=== PATIENT | female | born 1985 | race Caucasian/White ===

== ENCOUNTER 2017-04-07 14:46 | Emergency (ER) | payer SELFPAY ==
--- NOTE | 2017-04-07 14:52 | PDOC ---
Rapid Medical Evaluation Time Seen by Provider: 04/07/17 14:49 Medical Evaluation: Allergies Allergy/AdvReac Type Severity Reaction Status Date / Time No Known Allergies Allergy Verified 09/21/15 11:17 04/07/17 14:49 Pt presents to the ED with complaints of:itching and redness to left ear x 2 days, Pt states colored hair and noted s/s the next morning On brief exam: mild erythema and increased warmth to left helix and post auricular region Pt ordered for: none Pt to proceed to fasttrack Discharge Disposition - Diagnosis Itching - Referrals - Patient Instructions - Post Discharge Activity
[2017-04-07 14:56] VITALS: BP 110/61; PULSE 98; TEMP 99.2; BMI 22.1
[2017-04-07] MEDS ORDERED: diphenhydrAMINE HCL 50 MG CAPSULE PO ONE (16:51)
--- NOTE | 2017-04-07 16:51 | PDOC ---
History of Present Illness - General Chief Complaint: Redness To Affected Area Stated Complaint: ALLERGIC RXN Time Seen by Provider: 04/07/17 14:49 - History of Present Illness Initial Comments: 04/07/17 16:47 CHIEF COMPLAINT: allergic reaction HISTORY OF PRESENT ILLNESS: 31 yo F with no significant PMH presents to fast track with swelling, erythema, and warmth to b/l ears s/p using hair dye on . Patient denies any fever, chills, or swelling to mouth, tongue, lips , neck, throat. Patient states she did take Claritin without relief the last two days. PAST MEDICAL HISTORY: Denies past medical history FAMILY HISTORY: Denies SOCIAL HISTORY: Denies tobacco, alcohol, illicit drug use. SURGICAL HISTORY: Denies ALLERGIES: No known drug allergies REVIEW OF SYSTEMS General/Constitutional: Denies fever or chills. Denies weakness, weight change. HEENT: Denies change in vision. Denies ear pain or discharge. Denies sore throat. Cardiovascular: Denies chest pain or shortness of breath. Respiratory: Denies cough, wheezing, or hemoptysis. Gastrointestinal: Denies nausea, vomiting, diarrhea or constipation. Denies rectal bleeding. Genitourinary: Denies dysuria, frequency, or change in urination. Musculoskeletal: Denies joint or muscle swelling or pain. Denies neck or back pain. Skin: "My ears are itchy, red, hot, and swollen." PHYSICAL EXAM General Appearance: Well-appearing, appropriately dressed. No apparent distress. HEENT: EOMI, PERRLA. No conjunctival pallor. No photophobia, scleral icterus. Respiratory/Chest: Lungs CTAB. Cardiovascular: RRR. S1, S2. Musculoskeletal/Extremities: Normal inspection. FROM of all extremities, normal capillary refill. Pelvis Stable. No CVA tenderness. No tenderness to extremities, pedal edema, swelling, erythema or deformity. Integumentary: Erythema, warmth, and swelling to b/l helix with postauricular swelling. Neurologic: sightseeing guide II-XII intact. Fully oriented, alert. Appropriate mood/affect. Motor strength 5/5. No appreciable EOM palsy, facial droop or sensory deficit. Past History - Past Medical History Allergies/Adverse Reactions: Allergies Allergy/AdvReac Type Severity Reaction Status Date / Time No Known Allergies Allergy Verified 04/07/17 14:53 Home Medications: Ambulatory Orders Diphenhydramine [Benadryl Capsule -] 50 mg PO TID PRN #21 capsule 04/07/17 COPD: No - Immunization History Immunization Up to Date: Yes - Suicide/Smoking/Psychosocial Hx Smoking Status: No Smoking History: Never smoked Have you smoked in the past 12 months: No Number of Cigarettes Smoked Daily: 0 Information on smoking cessation initiated: No Hx Alcohol Use: No Drug/Substance Use Hx: No Substance Use Type: None *Physical Exam - Vital Signs Last Vital Signs Temp Pulse Resp BP Pulse Ox 99.2 F 98 H 18 110/61 100 04/07/17 14:54 04/07/17 14:54 04/07/17 14:54 04/07/17 14:54 04/07/17 14:54 Medical Decision Making - Medical Decision Making 04/07/17 16:51 31 yo F with no significant PMH presents to fast track with swelling, erythema, and warmth to b/l ears s/p using hair dye on . Patient denies any change of . -Benadryl 50 mg -Kenalog injection *DC/Admit/Observation/Transfer Diagnosis at time of Disposition: Itching Allergic reaction Qualifiers: Encounter type: initial encounter Qualified Code(s): T78.40XA - Allergy, unspecified, initial encounter - Discharge Dispostion Disposition: HOME Condition at time of disposition: Stable Admit: No - Prescriptions Prescriptions: Diphenhydramine [Benadryl Capsule -] 50 mg PO TID PRN #21 capsule PRN Reason: For Itching - Referrals - Patient Instructions Printed Discharge Instructions: DI for General Allergic Reactions Additional Instructions: Please take medications as prescribed. If you develop ANY swelling to the face , mouth, tongue, neck, throat, lips, or any difficulty breathing, or any new or worsening symptoms, please return to the ER immediately. - Post Discharge Activity
[2017-04-07] MEDS ORDERED: diphenhydrAMINE HCL 25 MG CAPSULE (FP) PO ONE (16:55)
[2017-04-07] MEDS ORDERED: TRIAMCINOLONE ACET 40MG/1ML VIAL IM ONE (16:57)
[2017-04-07] MEDS ORDERED: TRIAMCINOLONE ACET 40MG/1ML VIAL ONE (16:59)
== END 2017-04-07 17:09 | disposition home or self-care (01) ==
LOC: JERFT 14:46
PROC: 3E0233Z Introduction of Anti-inflammatory into Muscle, Percutaneous Approach (ICD-10-PCS; principal; 2017-04-07)
DX: O9A.219 Injury, poisoning and certain other consequences of external causes complicating pregnancy, unspecified trimester (principal); L29.8 Other pruritus; T49.4X5A Adverse effect of keratolytics, keratoplastics, and other hair treatment drugs and preparations, initial encounter; Y92.038 Other place in apartment as the place of occurrence of the external cause
CPT/HCPCS: 99281-25